=== PATIENT | male | born 1990 | race Caucasian/White ===

== ENCOUNTER 2021-08-26 15:14 | Emergency (ER) | payer OTHER ==
[~2021-08-26] VITALS: Ht 180.3 cm; Wt 65.5 kg
== END 2021-08-26 17:40 | disposition home or self-care (01) ==
LOC: ED 15:14
DX: S50.12XA Contusion of left forearm, initial encounter (principal); W22.8XXA Striking against or struck by other objects, initial encounter
CPT/HCPCS: 73090; 99283-25

== ENCOUNTER 2021-10-18 12:38 | Emergency (ER) | payer OTHER ==
[~2021-10-18] VITALS: Ht 180.3 cm; Wt 63.9 kg
[2021-10-18] MEDS ORDERED: CEPHALEXIN500 M1 PO (15:05)
== END 2021-10-18 15:25 | disposition home or self-care (01) ==
LOC: ED 12:38
DX: S62.631B Displaced fracture of distal phalanx of left index finger, initial encounter for open fracture (principal); W23.0XXA Caught, crushed, jammed, or pinched between moving objects, initial encounter; Y92.009 Unspecified place in unspecified non-institutional (private) residence as the place of occurrence of the external cause
CPT/HCPCS: 12001; 73140; 90471; 90715; 99283-25; A9270